=== PATIENT | male | born 1940 | race Caucasian/White ===

== ENCOUNTER → 2016-10-27 | Outpatient (CLI) | payer MEDICARE, OTHER ==
[2016-10-27 17:38] LABS: BASOPHILS % (AUTO) 0 % (0-2); EOSINOPHILS # (AUTO) 0.3 10^3uL; EOSINOPHILS % (AUTO) 4 % (0-4); MEAN CORPUSCULAR HEMOGLOBIN 28.9 PG (26.0-34.0); MEAN CORPUSCULAR HGB CONC 33.9 g/dL (31.0-37.0); MEAN CORPUSCULAR VOLUME 85 FL (80-100); MONOCYTES # (AUTO) 0.6 X10^3; MONOCYTES % (AUTO) 9 % (3-11); NEUTROPHILS # (AUTO) 3.9 X10^3; NEUTROPHILS % (AUTO) 57 % (51-67); PLATELET COUNT 130 10^3uL (150-450)
== END ==
LOC: LAB 17:12
PROVIDERS: ATTEND Family Medicine
DX: R42 Dizziness and giddiness (principal)
CPT/HCPCS: 36415; 85025

== ENCOUNTER → 2016-12-01 | Outpatient (CLI) | payer MEDICARE ==
[2016-12-01 14:20] LABS: BASOPHILS % (AUTO) 0 % (0-2); EOSINOPHILS # (AUTO) 0.3 10^3uL; EOSINOPHILS % (AUTO) 5 % (0-4); LYMPHOCYTES # (AUTO) 1.8 X10^3; MEAN CORPUSCULAR HEMOGLOBIN 28.1 PG (26.0-34.0); MEAN CORPUSCULAR VOLUME 85 FL (80-100); MEAN PLATELET VOLUME 9.6 FL (6.0-9.5); MONOCYTES # (AUTO) 0.6 X10^3; MONOCYTES % (AUTO) 11 % (3-11); NEUTROPHILS % (AUTO) 53 % (51-67); PLATELET COUNT 136 10^3uL (150-450); WHITE BLOOD COUNT 5.69 10^3uL (4.0-11.0)
[2016-12-01 14:28] LABS: ALBUMIN 4.2 g/dL (3.4-5.0); ANION GAP 16.1 MEQ/L (3-15); CALCULATED IONIZED CALCIUM 3.9 mg/dL (3.8-4.6); TOTAL PROTEIN 7.4 g/dL (6.4-8.5)
--- NOTE | 2016-12-01 17:22 | Diagnostic Imaging Report ---
EXAM: CHEST PA/LAT (2 VIEW)* INDICATION: Cough. COMPARISON: Chest radiograph 10/18/2015. FINDINGS: Normal heart size. There is mild prominence of the central pulmonary vascularity and perihilar interstitial opacities. These have overall improved since the prior exam. Calcified aorta. Sternotomy with mediastinal markers. AICD. No pleural effusion or pneumothorax. Hyperinflation. Degenerative changes in the spine. IMPRESSION: Prominent central pulmonary vascularity and perihilar interstitial opacities remain mildly prominent but have overall improved since 10/18/2015. Dictated by: Dictated on workstation # [id number]
== END ==
LOC: LAB 13:42 → EDSTATUS 14:00 → LAB 14:02
PROVIDERS: ATTEND Family Medicine
DX: R05 Cough (principal); I10 Essential (primary) hypertension; R74.8 Abnormal levels of other serum enzymes; R63.4 Abnormal weight loss; E78.00 Pure hypercholesterolemia, unspecified; E44.0 Moderate protein-calorie malnutrition
CPT/HCPCS: 36415; 71020; 80053; 80061; 82306; 82977; 83970; 84443; 85025

== ENCOUNTER → 2016-12-15 | Outpatient (REF) | payer MEDICARE | LOC: LAB 11:31 | PROVIDERS: ATTEND Family Medicine | DX: D64.9 Anemia, unspecified (principal) | CPT/HCPCS: 82607; 82746; 83540; 83550 ==

== ENCOUNTER → 2017-01-12 | Outpatient (REF) | payer MEDICARE ==
[2017-01-12 16:20] LABS: BASOPHILS % (AUTO) 0 % (0-2); EOSINOPHILS # (AUTO) 0.3 10^3uL; EOSINOPHILS % (AUTO) 5 % (0-4); LYMPHOCYTES # (AUTO) 1.7 X10^3; MEAN CORPUSCULAR HEMOGLOBIN 29.4 PG (26.0-34.0); MEAN CORPUSCULAR HGB CONC 33.1 g/dL (31.0-37.0); MEAN CORPUSCULAR VOLUME 89 FL (80-100); MEAN PLATELET VOLUME 10.6 FL (6.0-9.5); MONOCYTES # (AUTO) 0.5 X10^3; MONOCYTES % (AUTO) 10 % (3-11); NEUTROPHILS # (AUTO) 2.7 X10^3; NEUTROPHILS % (AUTO) 52 % (51-67); PLATELET COUNT 137 10^3uL (150-450); WHITE BLOOD COUNT 5.19 10^3uL (4.0-11.0)
[2017-01-12 16:26] LABS: ANION GAP 14.2 MEQ/L (3-15)
== END ==
LOC: LAB 14:55
PROVIDERS: ATTEND Family Medicine
DX: I50.22 Chronic systolic (congestive) heart failure (principal); D63.8 Anemia in other chronic diseases classified elsewhere; I48.2 Chronic atrial fibrillation; E53.8 Deficiency of other specified B group vitamins; I10 Essential (primary) hypertension; E56.8 Deficiency of other vitamins; E55.9 Vitamin D deficiency, unspecified
CPT/HCPCS: 80048; 82306; 83970; 85025